=== PATIENT | female | born 1975 | race Asian ===

== ENCOUNTER 2019-08-18 08:50 | Emergency (ER) | payer OTHER, SELFPAY ==
[2019-08-18 09:09] VITALS: BP 163/100; PULSE 83; RESP 18; TEMP 36.7; O2SAT 96
--- NOTE | 2019-08-18 09:38 | ED.WOUNDLAC ---
HPI - Wound/Laceration General Chief Complaint: Wound/Laceration <Cristin Land MD - Last Filed: 08/18/19 18:15> Stated Complaint: Laceration to Right Arm <Cristin Land MD - Last Filed: 08/18/19 18:15> Time Seen by Provider: 08/18/19 09:32 <Cristin Land MD - Last Filed: 08/18/19 18:15> Source: patient <Cristin Land MD - Last Filed: 08/18/19 18:15> Mode of arrival: ambulatory <Cristin Land MD - Last Filed: 08/18/19 18:15> Limitations: no limitations <Cristin Land MD - Last Filed: 08/18/19 18:15> History of Present Illness HPI narrative: This patient is a 44 year old female right hand dominant who presents for evaluation of right arm laceration. Approximately 50 minutes ago patient states she was in a [place] when she hit her arm on metal component of a cabinet causing her to get a laceration. She took 400 mg ibuprofen before arrival to ER. She reports mild pain and bleeding. She also states some numbness around the laceration but she denies numbness, weakness or tingling distally. Her last tetanus has been greater than 5 years ago. <Cristin Land MD - Last Filed: 08/18/19 18:15> Onset (ago): minute(s) (40 ) <Cristin Land MD - Last Filed: 08/18/19 18:15> Related Data Home Medications: Home Medications Medication Instructions Recorded Confirmed No Home Medications 08/18/19 08/18/19 <Cristin Land MD - Last Filed: 08/18/19 18:15> Allergies/Adverse Reactions: Allergies Allergy/AdvReac Type Severity Reaction Status Date / Time No Known Allergies Allergy Unknown Verified 08/18/19 09:22 <Cristin Land MD - Last Filed: 08/18/19 18:15> Review of Systems Review of Systems: All systems reviewed & are unremarkable except as noted in HPI and below <Cristin Land MD - Last Filed: 08/18/19 18:15> PMFSH Past Medical History Medical History: Medical History (Updated 08/18/19 @ 11:11 by Britton Vu PA-C) Patient denies medical problems <Cristin Land MD - Last Filed: 08/18/19 18:15> Social History Social History: Social History Smoking status: Never smoker Alcohol intake: current Gender identity (if verbalized by the patient): Female <Cristin Land MD - Last Filed: 08/18/19 18:15> Exam Narrative: Exam Narrative: GENERAL: Well-appearing, well-nourished, and in no acute distress. HEAD: Normocephalic, atraumatic EYES: PERRLA and EOMI, conjunctiva clear without discharge THROAT:Mucous membranes moist, NECK: Supple, RESPIRATORY: No respiratory distress, Airway patent, HEART: Normal peripheral pulses. . EXTREMITIES: No edema, normal strength with full range of motion. NEURO: Alert and oriented x3. CN 2-12 grossly intact. No focal deficits. PSYCH: Normal mood and affect. <Cristin Land MD - Last Filed: 08/18/19 18:15> Skin: Other: right fore arm with flap laceration approximately 3 cm with subcutaneous tissue exposed <Cristin Land MD - Last Filed: 08/18/19 18:15> Course Vital Signs Vital signs: Vital Signs Temperature 98.0 F 08/18/19 09:09 Pulse Rate 83 08/18/19 09:09 Respiratory Rate 18 08/18/19 09:09 Blood Pressure 163/100 H 08/18/19 09:09 Pulse Oximetry 96 08/18/19 09:09 Temperature 98.0 F 08/18/19 09:09 Pulse Rate 78 08/18/19 11:18 Respiratory Rate 20 08/18/19 11:18 Blood Pressure 132/89 08/18/19 11:18 Pulse Oximetry 99 08/18/19 11:18 <Cristin Land MD - Last Filed: 08/18/19 18:15> Vital Signs Temperature 98.0 F 08/18/19 09:09 Pulse Rate 83 08/18/19 09:09 Respiratory Rate 18 08/18/19 09:09 Blood Pressure 163/100 H 08/18/19 09:09 Pulse Oximetry 96 08/18/19 09:09 Temperature 98.0 F 08/18/19 09:09 Pulse Rate 78 08/18/19 11:18 Respiratory Rate 20 08/18/19 11:18 Blood Pressure 132/89 08/18/19 11:
[2019-08-18] MEDS: TETANUS,DIPHTHERIA,AC PERTUSSIS ADULT (0.5 ML) BOOSTRIX IM (10:07)
[2019-08-18 11:18] VITALS: BP 132/89; PULSE 78; RESP 20; O2SAT 99
== END 2019-08-18 11:21 | disposition home or self-care (01) ==
PROVIDERS: Emergency Provider General Practice; PCP Family Medicine
DX: S51.811A Laceration without foreign body of right forearm, initial encounter (principal); Z23 Encounter for immunization; W26.8XXA Contact with other sharp object(s), not elsewhere classified, initial encounter
CPT/HCPCS: 12002; 90471; 90715; 99282

== ENCOUNTER 2022-03-26 10:31 | Outpatient (CLI) | payer OTHER, SELFPAY ==
[2022-03-26 19:54] LABS: Basophils Absolute Auto 0.1 K/mm3 (0.0-0.1); Basophils Percent Auto 0.9 % (0.2-1.2); Eosinophils Absolute Auto 0.1 K/mm3 (0-0.3); Eosinophils Percent Auto 0.9 % (0-4.4); Hematocrit 45.8 % (37.0-47.0); Hemoglobin 14.7 g/dL (12.0-15.0); Immature Granulocyte Absolute 0.02 K/mm3 (0.00-0.031); Immature Granulocyte Percent A 0.3 % (0-0.5); Lymphocytes Absolute Auto 2.36 K/mm3 (0.9-3.2); Lymphocytes Percent Auto 34.3 % (18.3-44.2); Mean Corpuscular HGB Conc 32.1 g/dl (32-36); Mean Corpuscular Hemoglobin 29.8 pg (26-34); Mean Corpuscular Volume 92.9 fl (80-100); Mean Platelet Volume 9.7 fl (7.4-10.4); Monocytes Absolute Auto 0.5 K/mm3 (0.1-0.6); Monocytes Percent Auto 7.6 % (2.6-8.5); Neutrophils Absolute Auto 3.9 K/mm3 (1.3-6.7); Platelet Count Result 307 k/mm3 (150-375); Red Blood Count 4.93 M/mm3 (4.2-5.4); Red Cell Distribution Width 13.2 % (11.5-14.5); White Blood Count 6.9 K/mm3 (4.5-10.0)
[2022-03-26 20:01] LABS: Alanine Aminotransferase 51 U/L (6-35); Albumin Level 4.7 g/dL (3.5-5.1); Alkaline Phosphatase 107 U/L (38-126); Anion Gap 5 mmol/L (8-16); Aspartate Amino Transferase 72 U/L (14-36); Bilirubin,Total 0.4 mg/dL (0.2-1.3); Blood Urea Nitrogen 15 mg/dL (7-17); Calcium 9.4 mg/dL (8.4-10.2); Carbon Dioxide 32 mmol/L (22-30); Chloride 101 mmol/L (98-107); Cholesterol 183 mg/dL (0-200); Estimated Glomerular Filt Rate > 60; Glucose 81 mg/dL (65-110); HDL Direct 45 mg/dL; Potassium 4.4 mmol/L (3.4-5.0); Sodium 138 mmol/L (137-145); Triglycerides 100 mg/dL (<150)
[2022-03-26 20:12] LABS: LDL Cholesterol Direct 97 mg/dL
[2022-03-26 20:37] LABS: Thyroid Stimulating Hormone Reflex 0.718 uIU/mL (0.465-4.68)
[2022-03-26 20:38] LABS: Microalbumin Urine Random < 6.0 mg/L (0-16.7)
[2022-03-26 20:39] LABS: MALB Creatinine Ratio < 8.8 mg/g (0-30)
[2022-03-26 22:53] LABS: Hemoglobin A1C 5.3 % (<5.7)
== END 2022-03-26 10:32 | disposition home or self-care (01) ==
LOC: ANHGOSHLAB 10:33
PROVIDERS: PCP Emergency Medicine; Visit Provider Emergency Medicine
DX: Z00.00 Encounter for general adult medical examination without abnormal findings (principal); R63.5 Abnormal weight gain; I10 Essential (primary) hypertension
CPT/HCPCS: 36415; 80053; 80061; 82043; 83036; 84443; 85025

== ENCOUNTER 2022-12-02 09:40 | Outpatient (CLI) | payer OTHER, SELFPAY ==
[2022-12-02 19:26] LABS: Alanine Aminotransferase 37 U/L (6-35); Albumin Level 4.6 g/dL (3.5-5.1); Alkaline Phosphatase 69 U/L (38-126); Aspartate Amino Transferase 37 U/L (14-36); Bilirubin,Total 0.6 mg/dL (0.2-1.3)
== END 2022-12-02 09:41 | disposition home or self-care (01) ==
LOC: ANHGOSHLAB 09:42
PROVIDERS: PCP Emergency Medicine; Visit Provider Emergency Medicine
DX: R79.89 Other specified abnormal findings of blood chemistry (principal)
CPT/HCPCS: 36415; 80076

== ENCOUNTER 2023-09-06 11:08 | Outpatient (CLI) | payer OTHER, SELFPAY ==
[2023-09-06 13:48] LABS: Alanine Aminotransferase 67 U/L (6-35); Alkaline Phosphatase 82 U/L (38-126); Anion Gap 7 mmol/L (4-12); Aspartate Amino Transferase 63 U/L (14-36); Bilirubin,Total 0.6 mg/dL (0.2-1.3); Blood Urea Nitrogen 18 mg/dL (7-17); Calcium 9.9 mg/dL (8.4-10.2); Carbon Dioxide 32 mmol/L (22-30); Chloride 102 mmol/L (98-107); Cholesterol 228 mg/dL (0-200); Estimated Glomerular Filt Rate > 60; Glucose 100 mg/dL (65-110); HDL Direct 58 mg/dL; Potassium 4.5 mmol/L (3.4-5.0); Sodium 141 mmol/L (137-145); Triglycerides 152 mg/dL (<150)
[2023-09-06 13:59] LABS: LDL Cholesterol Direct 128 mg/dL
== END 2023-09-06 11:09 | disposition home or self-care (01) ==
LOC: ANHGOSHLAB 11:09
PROVIDERS: PCP Emergency Medicine; Visit Provider Emergency Medicine
DX: R79.89 Other specified abnormal findings of blood chemistry (principal); I10 Essential (primary) hypertension
CPT/HCPCS: 36415; 80053; 80061

== ENCOUNTER 2023-09-14 09:11 | Outpatient (CLI) | payer OTHER, SELFPAY ==
--- NOTE | ~2023-09-14 | US_ITS ---
Limited Abdominal Sonogram: Real-time sonographic imaging of the right upper quadrant was performed. Clinical History: Abnormal blood chemistry findings Findings: The liver appears echogenic, with no evidence of mass lesion or bile duct dilatation. Main portal vein demonstrates normal direction of flow. The gallbladder is well distended, and appears no rmal with no evidence of gallstone or wall thickening. The common bile duct measures 9 mm. The visua lized pancreas, aorta, and IVC are unremarkable. Impression: Diffuse fatty infiltration of liver. Dilated common bile duct. Consider MRCP for further evaluation as indicated. Reviewed, dictated and finalized at location . Impression: Diffuse fatty infiltration of liver. Dilated common bile duct. Consider MRCP for further evaluation as indicated.
== END 2023-09-14 09:12 ==
PROVIDERS: PCP Emergency Medicine; Visit Provider Emergency Medicine
DX: R79.89 Other specified abnormal findings of blood chemistry (principal); K76.0 Fatty (change of) liver, not elsewhere classified
CPT/HCPCS: 76705

== ENCOUNTER 2023-09-20 07:52 | Outpatient (CLI) | payer OTHER, SELFPAY ==
--- NOTE | ~2023-09-20 | MM_ITS ---
EXAMINATION: MM screening sofia BI w bill HISTORY: Screening TECHNIQUE: Craniocaudal and mediolateral oblique 3-D tomosynthesis images were obtained and synthetic 2-D images were generated. CAD analysis was submitted and interpreted. COMPARISON: No prior mammogram is available for comparison at this institution. BREAST PARENCHYMAL COMPOSITION: Not dense: There are scattered areas of fibroglandular density. FINDINGS: There is no evidence for malignancy in the right breast. There is a left subareolar mass. T here is possible left subareolar architectural distortion. IMPRESSION: 1. Possible architectural distortion with associated mass in the subareolar location of the left [address]. 2. Additional mammographic views and possible breast ultrasound are recommended. BI-RADS Category 0: Incomplete: Needs additional imaging evaluation. Reviewed, dictated and finalized at location B. IMPRESSION: 1. Possible architectural distortion with associated mass in the subareolar loc ation of the left breast. 2. Additional mammographic views and possible breast ultrasound are recommended . BI-RADS Category 0: Incomplete: Needs additional imaging evaluation.
== END 2023-09-20 07:53 | disposition home or self-care (01) ==
LOC: CHSIMG 07:54
PROVIDERS: PCP Emergency Medicine; Visit Provider Emergency Medicine
DX: Z12.31 Encounter for screening mammogram for malignant neoplasm of breast (principal)
CPT/HCPCS: 77063; 77067

== ENCOUNTER 2023-09-23 08:30 | Outpatient (CLI) | payer OTHER, SELFPAY ==
--- NOTE | ~2023-09-23 | MMUS_ITS ---
EXAMINATION: MM diagnostic sofia LT w bill, US breast LT limited HISTORY: Follow-up possible architectural distortion with mass in the left breast TECHNIQUE: Additional 3-D tomosynthesis images of the left breast were performed and synthetic 2-D im ages were generated. CAD analysis was submitted and interpreted. High resolution Limited left breast ultrasound was performed. COMPARISON: 09/20/2023 BREAST PARENCHYMAL COMPOSITION: Not dense: There are scattered areas of fibroglandular density. FINDINGS: MAMMOGRAPHIC FINDINGS: There is a small persistent mass in the subareolar location of the left breast on spot cc view. This is not definitely visualized on spot MLO or mediolateral views. ULTRASOUND: Limited left breast ultrasound: In the subareolar location of the left breast there is a 6 x 3 x 2 mm cyst corresponding to the mass seen on mammography. No suspicious masses to suggest malignancy. IMPRESSION: 1. No evidence for malignancy in the left breast. Benign finding. 2. Routine yearly screening mammogram and regular clinical breast examination are recommended. BI-RADS Category 2: Benign finding(s). Reviewed, dictated and finalized at location B. IMPRESSION: 1. No evidence for malignancy in the left breast. Benign finding. 2. Routine yearly screening mammogram and regular clinical breast examination a re recommended. BI-RADS Category 2: Benign finding(s).
== END 2023-09-23 08:31 | disposition home or self-care (01) ==
LOC: CHSIMG 08:31
PROVIDERS: PCP Emergency Medicine; Visit Provider Nurse Practitioner Family
DX: R92.8 Other abnormal and inconclusive findings on diagnostic imaging of breast (principal)
CPT/HCPCS: 76642; 77061; 77065; G0279

== ENCOUNTER 2024-04-03 08:27 | Outpatient (CLI) | payer OTHER, SELFPAY ==
--- NOTE | ~2024-04-03 | US_ITS ---
Limited Abdominal Sonogram: Real-time sonographic imaging of the right upper quadrant was performed. Clinical History: Abnormal LFTs Findings: The liver appears normal with no evidence of mass lesion or bile duct dilatation. Main por greyson vein demonstrates normal direction of flow. The gallbladder is well distended, and appears normal with no evidence of gallstone or wall thickening. The common bile duct measures 8 mm. The visualize d pancreas, aorta, and IVC are unremarkable. Impression: Mildly dilated common bile duct, of uncertain etiology. Reviewed, dictated and finalized at location M. O CONSULTANT Impression: Mildly dilated common bile duct, of uncertain etiology.
== END 2024-04-03 08:28 | disposition home or self-care (01) ==
LOC: GOSHIMG 08:27
PROVIDERS: PCP Family Medicine; Visit Provider Family Medicine
DX: R79.89 Other specified abnormal findings of blood chemistry (principal); K83.8 Other specified diseases of biliary tract; K76.0 Fatty (change of) liver, not elsewhere classified
CPT/HCPCS: 76705

== ENCOUNTER 2024-04-03 08:42 | Outpatient (CLI) | payer OTHER, SELFPAY ==
--- OUTSIDE RECORDS SUMMARY | 2024-04-03 08:56 | XMS_ITS | Clinical Summary ---
Author Organization [facility] Address [address] [address] Care Team Providers Care Construction Safety Consultant Name Role Phone Unavailable Primary Care Provider Unavailabl e Source Comments [facility],non-owned Affiliates and Associated Physician Practices is amultiple site organization consisting of ambulatory clinics and hospital sitesin [place], [place], [place] and [place]. This disclosure is being madepursuant to the Care Everywhere program and may not contain all information available regarding this patient. Last updated 17.[facility] Social History Tobacco Use Types Packs/Day Years Used Date Smoking Tobacco: Never Assessed Sex and Gender Information Value Date Recorded Sex Assigned at Not on file Gender Identity Not on file Sexual Orientation Not on file Plan of Treatment Upcoming Encounters Date Type Department Care Team (Late st Contact Info) Description 04/23/2024 2:10 PM DIRECTOR OF ACCREDITATION Office Visit [facility] [id number] [place] [id number] [place] [address] [address] Health Maintenance Due Date Last Done Comments COLOGUARD (AGES 45-75) - COL ON CA SCREENING 1973 COLON MONITORING 1973 COLONOSCOPY - COLON CA SCREENING 1973 CT COLONOGRAPHY - COLON CA SCREENING 1973 Colorectal Cancer Screening 1973 FIT - COLON CA SCREENING 1973 FLEX SIG - COLON CA SCREENING 1973 LIPID TESTING 1973 MAMMOGRAM 1973 PAP SMEAR 1973 HIV SCREENING 02/05/1988 HEPATITIS C SCREENING 01/31/1991 DTAP/TDAP/TD VACCINES (1 - Tdap) 02/05/1992 HEPATITIS B VACCINE (1 of 3 - 19+ 3-dose series) 02/05/1992 PNEUMOCOCCAL VACCINE 50+ (1 of 1 - PCV) 2023 ZOSTER VACCINE (1 of 2) 2023 COVID-19 VACCINE (1 - 2023-2 5 season) 2023 INFLUENZA VACCINE (#1) 2023 DEPRESSION SCREENING 03/07/2024 HIB VACCINE Aged Out No longer eligi ble based on patient's age to complete this topic HPV VACCINE Aged Out No longer eligi ble based on patient's age to complete this topic MENINGOCOCCAL (Group B) VACCINE Aged Out No longer eligible based on patient's age to complete this topic MENINGOCOCCAL VACCINE Aged Out No rafael chika eligible based on patient's age to complete this topic PNEUMOCOCCAL VACCINE Aged Out No long er eligible based on patient's age to complete this topic
--- OUTSIDE RECORDS SUMMARY | 2024-04-03 08:56 | XMS_ITS | Data Portability ---
Author Organization [facility] [place] Address [address] [place] [address] Care Team Providers Care Russian Language Instructor Name Role Phone DMITRYJAVI AIKEN Primary Care Provider Assessment Encounter Date Assessment Date Assessment LastModified by Organization Details LastModified Time 09/25/2020 09/25/2020 Annual gynecological exam performed. Patient will come back in a year unless there are new symptoms. Not available 09/25/2020 11:00:38 Plan of Treatment Reminders Order Date Submit Date Provider Last Modified By Organization Details Last Modified Time Details Appointments None record ed. Lab None record ed. Referral None record ed. Procedures None record ed. Surgeries None record ed. Imaging None record ed. Medication Orders None record ed. Patient TargetsNo targets recorded. Patient InstructionsNo instructions recorded. Reason for Referral None Reported. Problems Name Problem SNOMED Code Status Onset Date Resolution Date Notes Provider Name and Address Organization Details Recorded Time SNOMED CT Concept Completed 201809/25/2020 Encntr for general adult medical exam w/o abnormal findings; Recorded Elsewhere : No Locati on: [facility] So urce: EHR Chron ic: N Practic e ID: [id number] Bill able Time: 10:45:00 AM Apryl morales [facility] 11:03:12 Screenin g for malignan t neoplasm of cervix Completed 201509/25/2020 Screening for malignant neoplasms of the cervix;Re corded Elsewhere : No Locati on: [facility] So urce: EHR Chron ic: N Practic e ID: [id number] Bill able Time: 01:30:00 PM Apryl morales [facility] 1 11:03:[address] Concept Completed 201809/25/2020 Encntr for specialty finishing utility person exam (general) (routine) w/o abn findings; Recorded Elsewhere : No Locati on: [facility] So urce: EHR Chron ic: N Practic e ID: [id number] Bill able Time: 10:45:00 AM Apryl Alves [facility] 1 11:03:14 Body mass index 25-29 - overweig ht [id number] Completed 201509/25/2020 Body mass index (BMI) 26.0-26.9 , adult;Rec orded Elsewhere : No Locati on: [facility] So urce: EHR Chron ic: N Practic e ID: [id number] Bill able Time: 01:30:00 PM Apryl Alves [facility] 11:03:06 Elevated blood-pr essure reading without diagnosi s of hyperten shruthi [id number] Completed 201809/25/2020 Elevated blood-pre ssure reading without diagnosis of HTN;Recor ded Elsewhere : No Locati on: [facility] So urce: EHR Chron ic: N Practic e ID: [id number] Bill able Time: 10:45:00 AM Apryl Alves [facility] 11:03:08 Screenin g for malignan t neoplasm of rectum Completed 201509/25/2020 Encounter for screening for malignant neoplasm of rectum;Re corded Elsewhere : No Locati on: [facility] So urce: EHR Chron ic: N Practic e ID: [id number] Bill able Time: 01:30:00 PM Apryl Sanford [facility] 11:03:11 Problem Notes None recorded. Procedures Surgical History Date Name Laterality Status Provider Name and Address Organization Details Recorded Time 03/07/18 reconstruction of anterior cruciate ligament of knee joint completed Apryl [facility] 09/25/2020 11:11:03 Imaging Results None recorded. Procedure Notes None recorded. Medical Equipment None Reported. Allergies No known drug allergies Medications Name Sig Start Date Stop Date Status Note LastModified by Organization Details LastModified Time Zyrtec 10 mg tablet take 1 tablet by oral route every day active Prescribed Elsewhere: Yes Locatio n: [facility] Ramo fy By: [email or web address] En counter DateTime: 05/15/2018 10:45:00 AM Not Available Not Available Not Available Vitals Date Recorded Body height Body mass index (BMI) Body weight Provider Name and Address Organization Details Last Updated DateTime 09/25/2020 160.02 cm 29.8 kg/m2 74972.52 g Apryl Alves [facility] 09/25/2020 11:02:52 Date Recorded Systolic blood pressure Diastolic blood pressure Provider Name and Address Organization Details Last Updated DateTime 09/25/2020 126 mm[Hg] 80 mm[Hg] Lynsey Wise, [facility]- [address], [place], [address], [facility] 09/25/2020 11:30:41 Social History Question Answer Notes LastModified by Organizat ion Details LastModified Time Tobacco Smoking Status Never Smoker Apryl Alves [facility], [facility] 09/25/2020 11:10:45 What Is Your Level Of Alcohol Consumption? Occasional Information not available 09/25/2020 Are You Blind Or Do You Have Difficulty Seeing? No Information not available 09/25/2020 What Is Your Level Of Caffeine Consumption? Occasional Information not available 09/25/2020 Are You Deaf Or Do You Have Serious Difficulty Hearing? No Information not available 09/25/2020 What Type Of Diet Are You Following? REGULAR Information not available 09/25/2020 Do You Use Your Seat Belt Or Car Seat Routinely? Yes Information not available 09/25/2020 Do You Have Smoke And Carbon Monoxide Detectors In Your Home? Yes Information not available 09/25/2020 Do You Feel Stressed (tense, Restless, Nervous, Or Anxious, Or Unable To Sleep At Night)? [id number] Information not available 09/25/2020 Do You Use Any Illicit Or Recreational Drugs? No Information not available 09/25/2020 Do You Use Sunscreen Routinely? Yes Information not available 09/25/2020 Sex: Unknown Functional Status Question Answer Note LastModified by Organizat ion Details LastModified Time Are you able to walk? YESWOREST Information not available 09/25/2020 What is your exercise level? Occasional Information not available 09/25/2020 Mental Status None recorded. Family History Relationship Description Onset Age of this Age Resolved Age Notes LastModified by Organization Details LastModified Time Maternal Grandmother Diabetes mellitus Not available 2020 11:10:21 Medical History Condition Response Allergies (Food, seasonal, environmental ) N Other Y Breast Cancer N Drug/Latex Allergies/Reactions N Blood Transfusion N Dermatologic Disorders N Lung Disease N Defects or Inherited Disease N Breast Problem N Gestational Diabetes N Hematologic disorders N Anesthesia Complications N History of STI N Deep Vein Thrombosis N Polycystic ovary syndrome N Anxiety Disorder N Autoimmune disease N Arthritis N Infertility N Polyps N Acid Reflux (GERD) N History of abnormal pap N Cancer N Stroke N Varicosities N Neurologic/Epilepsy N Endometriosis N High Cholesterol N Headaches N Fibromyalgia N Kidney Disease N Heart Problems N Kidney or Bladder Problems N Thyroid Problems N GI Problems N Eating Disorder N Anemia N Art (IVF or FET) N Psychiatric Illness N Ovarian Cancer N Diabetes N Pulmonary (TB, Asthma) N Hepatitis/Liver Disease N No Past Medical History N Eczema N Urinary Tract Infection N Abuse/Domestic Violence N Asthma N Trauma/Violence N Depression/ depression N Heart Disease N Pre-Eclampsia N Hypertension N Osteoporosis N Thrombophilias N Gynecological History Statement/Question Response Abnormal Pap N Flow Moderate Date of Last Mammogram Date of LMP 09/04/2020 Was last menstrual period normal N STIs/STDs N Duration of Flow (days) 5 13 Current Control Method None Are cycles usually normal N Sexually Active? Y Menses Monthly N Date of Last Pap Smear Sexual Problems? N LMP Approximate Obstetrics History GPAL:G 2 P 0 0 0 2 Type Value Living 2 Total 2 Past Encounters Encounter ID Performer Location Encounter Start Date Encounter Closed Date Diagnosis/Indication Diagnosis SNOMED-CT Code Diagnosis ICD10 Code Diagnosis Note [id number] Lynsey Wise [facility] [address] [address] 09/25/2020 10:42:10 09/25/2020 11:36:06 Gynecologic examination 63152221 Z01.419 Suggested Calcium with Vitamin D 1200-1500m g daily. Patient advised to get an annual flu shot in the fall and she could obtain at [facility] or [facility] care clinic. Also to obtain TDap vaccinatio n if you have not had one in the last 10 years. Recommend yearly mammograms . Encouraged monthly self breast exams. Encourage safe sexual practices, to use condoms and limit partners if not already in a monogamous relationsh ip. Engage in daily exercise of low impact aerobic exercise 45-60 minutes 4-5 times weekly. Avoid tobacco and illicit drugs as well as using moderation with alcohol intake less than 1-2 8 oz beverages daily. This lifestyle behavior pattern will lead to less health conditions and longer life span. If BMI greater than 25 weight watchers or dietary consult advised. All questions have been answered. Patient appears to understand informatio n, but if you have any questions please call or respond to this email. Pap/hpv hx is wnlLast pap/hpv 2018 wnlNext pap/hpv due 2023 unless otherwise indicated per asccpSTD [facility] ipal of schoolNo issues or concernsRe commended reading: The menopause manifestoC olonoscopy rec's reviewed-w ill discuss with PCPmammo ordered Health Concerns Section Related Observation LastModified by Organization Detai ls LastModified Time None Recorded Concern Status LastModified by Organization Details LastModified Time None Recorded Advance Directives Directive None Recorded Payers Encounter Date Sequence Insurance Name Policy Number Policy Schwartz Covered Member ID Schwartz Member ID Guarantor Name 09/25/2020 1 [facility] [id number] Morgan Lewis [id number] Marika Lewis Notes Date Note Type Note Provider Name and Address Organization Details Recorded Time 09/25/2020 text/html Annual GYNReport ed bypatient.History: no gynecologic complaints Menstrual cycle:Normal menses Urinary symptoms:No hematuria; No incontinence Vulva:No genital lesion Vagina:Normal vaginal discharge Breast:No breast pain; No breast lump; No nipple discharge Current Contraception:Sati sfied with current contraception; Monogamous relationship; Partner had vasectomy Sexual complaints:No sexual complaints; No pain during intercourse; Normal libido Menopausal Symptoms:No menopausal symptoms; Normal vaginal lubrication Psychological symptoms:No depression; No anxiety; No PMDD Preventive measures:Encourage self breast examination; Encourage regular exercise; Encourage no tobacco use; Encourage regular mammograms starting age 40; Followed with Q3 year pap smear and high risk HPV typing; Needs to schedule mammogram; Needs to schedule colonoscopy Lynsey Wise, [facility]- [address], [place], [address], [facility] 09/25/2020 11:31:33 OBGyn Episode Ob Episode Information Episode Created Date Number of Fetuses Patient Bloodtype Patient rh Status Prepregnancy Weight lbs Domestic Partner Domestic Partner Phone Father Name Fountain Roller Assembler Status 09/26/19 21 1 CLOSED Fetus Data First Name Last Name Admitted to NICU Weight (g) Sex Living Outcome Pediatric Complications Fetus ID Race Codes Race Delivery Type 2976.47 0704 M Full Term [id number] Vaginal Delivery Alon Calculation Initial Alon Date Initial Exam Date Initial Exam Provider Initial Ultrasound Date Last Menstrual Period Date Ultra Sound Weeks Gestation 0 Eighteen To Twenty Week Alon Update Ultra Sound Date Fundal Height At Umbil Quickening Date Ultra Sound Latest Weeks Gestation Final Alon Confirmed By Final Alon Confirmed Date Final Alon Date Ultra Sound Latest Days Gestation 0 0 Menstrual History Last Menstrual Date Menses Monthly On Bcp Conception Prior Menses Frequency Hcg Plus Date Menarche Onset Age Delivery Information Delivery Date Delivery Type Labor Anesthesia Weeks Gestation Incision Type Labor Labor Length Hrs Delivered By Post Complications Tubal Sterilization Discharge Date Comments 5 39 Discharge Information Feeding Method Contraceptive Method Maternal HG B and HCT Levels Ob Episode Information Episode Created Date Number of Fetuses Patient Bloodtype Patient rh Status Prepregnancy Weight lbs Domestic Partner Domestic Partner Phone Father Name Fountain Roller Assembler Status 09/26/19 21 1 CLOSED Fetus Data First Name Last Name Admitted to NICU Weight (g) Sex Living Outcome Pediatric Complications Fetus ID Race Codes Race Delivery Type 3089.86 8704 M Full Term [id number] Vaginal Delivery Alon Calculation Initial Alon Date Initial Exam Date Initial Exam Provider Initial Ultrasound Date Last Menstrual Period Date Ultra Sound Weeks Gestation 0 Eighteen To Twenty Week Alon Update Ultra Sound Date Fundal Height At Umbil Quickening Date Ultra Sound Latest Weeks Gestation Final Alon Confirmed By Final Alon Confirmed Date Final Alon Date Ultra Sound Latest Days Gestation 0 0 Menstrual History Last Menstrual Date Menses Monthly On Bcp Conception Prior Menses Frequency Hcg Plus Date Menarche Onset Age Delivery Information Delivery Date Delivery Type Labor Anesthesia Weeks Gestation Incision Type Labor Labor Length Hrs Delivered By Post Complications Tubal Sterilization Discharge Date Comments 3 40 Discharge Information Feeding Method Contraceptive Method Maternal HG B and HCT Levels
--- OUTSIDE RECORDS SUMMARY | 2024-04-03 08:57 | XMS_ITS | Clinical Summary ---
Author Organization [facility] 8 [facility] Address [address] [place] [address] Care Team Providers Care Quality Assurance Calibrator Name Role Phone Chalo Toth MD Primary Care Provider [phone] Allergies No known active allergies Medications ibuprofen (ADVIL,MOTRIN) 200 mg tab/cap Take 200 mg by mouth every 6 (six) hours as needed for pain. Active betamethasone, augmented, (DIPROLENE) 0.05 % ointment Apply topically 2 (two) times a day 50 g 5 3 Active ustekinumab (STELARA) injection Inject 0.5 mL (45 mg total) under the skin once for 1 dose Repeat 4 weeks later (loading dose is 2 injections, 4 weeks apart) 0.5 mL 1 3 Active ustekinumab (STELARA) injection Inject 0.5 mL (45 mg total) under the skin every 3 (three) months 0.5 mL 3 3 Active Active Problems No known active problems Surgical History Surgery Date Site/Laterality Comments KNEE SURGERY Social History Tobacco Use Types Packs/Day Years Used Date Smoking Tobacco: Never Smokeless Tobacco: Never Personal Safety Answer Date Recorded Getting School Help Needed Not on file 05/20 Comments Unknown Sex and Gender Information Value Date Recorded Sex Assigned at Not on file Legal Sex Female 6:48 PM SURGICAL DEVICE SALES REPRESENTATIVE Gender Identity Not on file Sexual Orientation Not on file Obstetrics History Last Filed Vital Signs Vital Sign Reading Time Taken Comments Blood Pressure 146/77 12/03/2016 11:18 AM CDT Pulse 67 12/03/2016 11:18 AM CDT Temperature - - Respiratory Rate - - Oxygen Saturation - - Inhaled Oxygen Concentration - - Weight 67.1 kg (148 lb) 12/03/2016 11:18 AM CDT Height 162.6 cm (5' 4 ) 12/03/2016 11:18 AM CDT Body Mass Index 25.4 12/03/2016 11:18 AM CDT Plan of Treatment Health Maintenance Due Date Last Done Comments Breast Cancer Screening-Mammogram 1973 Cervical Cancer Screening 1973 Colon Cancer Screening-Colonoscopy 1973 Depression Screening 1973 Hepatitis B Screening 1991 Regular Well Visit/Exam 18-64 1991 Zoster Vaccine (1 of 2) 2023 Covid-19 Vaccine (2023-2 5 season) 2023 06/22/2020, 06/01/2020 Influenza Vaccine (#1) 2023 0, 12/17/2018 DTaP/Tdap/Td Vaccine (2 - Td or Tdap) 08/17/2029 08/18/2019 Hepatitis C Screening Completed 07/09/2022 Pneumococcal vaccine <65 Aged Out No longer eligible based on patient's age to complete this topic Procedures Procedure Name Priority Date/Time Associated Diagnosis Comments HEPATITIS C ANTIBODY Routine 07/09/2022 11:42 AM CDT High risk medication use from Last 3 Months or Most Recently Relevant to Health Maintenance Results * Hepatitis C antibody (07/09/2022 11:42 AM CDT) Hep C Ab Nonreactive Nonreactive ENEDELIA PERALTA Comment:Antibodies to HCV no t detected. Does NOT exclude the possibility of recent exposure to HCV. Current interpretive data was last revised on 21 Blood 07/09/2022 11:4 2 AM CDT 07/09/2022 12:13 PM CDT us Aida Pedraza MD LAB MICROBIOLOGY - GENERAL BRENDA MCLEAN Final Result [facility] [place] [address] from Last 3 Months or Most Recently Relevant to Health Maintenance Insurance [facility] H[facility]/PPO Address: [place] [address] [facility]/PPO Address: [place] [address] [facility]: [place] [address] Care Teams Quality Assurance Calibrator Relationship Specialty Start Date End Date Chalo Toth MD [address] [address] PCP - General Family Medicine 12/03/16
--- OUTSIDE RECORDS SUMMARY | 2024-04-03 08:57 | XMS_ITS | Clinical Summary ---
Author Organization [facility] Address [address] [place] [address] Care Team Providers Care Loader [employer]iconductor Dies Name Role Phone Ene Flannery MD Primary Care Provider [phone] Medications No known medications Active Problems Problem Noted Date Diagnosed Date Primary osteoarthritis of left knee 04/21/2020 Quadriceps weakness 04/21/2020 Family History Medical History Relation Name Comments Diabetes Father No Known Problems Mother Relation Name Status Comments Father Mother Social History Tobacco Use Types Packs/Day Years Used Date Smoking Tobacco: Never Smokeless Tobacco: Never Alcohol Use Standard Drinks/Week Comments Yes 2 (1 standard drink = 0.6 oz pur e alcohol) Financial Resource Strain Answer Date R ecorded How hard is it for you to pa y for the very basics like food, housing, medical care, and heating? Not hard at all 04/21/2020 Food Insecurity Answer Date Recorded Within the past 12 months, y ou worried that your food would run out before you got the money to buy more. Never true 04/21/19 21 Within the past 12 months, t he food you bought just didn't last and you didn't have money to get more. Never true 04/21/2020 Transportation Needs Answer Date Record ed In the past 12 months, has l ack of transportation kept you from medical appointments or from getting medications? No 04/07 In the past 12 months, has l ack of transportation kept you from meetings, work, or from getting things needed for daily living? No 04/21/2020 Comments Unknown Sex and Gender Information Value Date Recorded Sex Assigned at Not on file Legal Sex Female 9:34 AM GERIATRICS PHYSICIAN Gender Identity Not on file Sexual Orientation Not on file Last Filed Vital Signs Vital Sign Reading Time Taken Comments Blood Pressure 120/80 04/21/2020 9:22 AM GERIATRICS PHYSICIAN Pulse - - Temperature - - Respiratory Rate - - Oxygen Saturation - - Inhaled Oxygen Concentration - - Weight 74.8 kg (165 lb) 04/21/2020 9:22 AM GERIATRICS PHYSICIAN Height 162.6 cm (5' 4 ) 04/21/2020 9:22 AM GERIATRICS PHYSICIAN Body Mass Index 28.32 04/21/2020 9:22 AM GERIATRICS PHYSICIAN Plan of Treatment Health Maintenance Due Date Last Done Comments DTAP/TDAP/TD VACCINES (1 - Tdap) 02/05/1992 HEPATITIS B VACCINES (1 of 3 - 19+ 3-dose series) 02/05/1992 CERVICAL CANCER SCREENING 2003 BREAST CANCER SCREENING 2013 COLORECTAL SCREENING 2018 Colorectal Cancer Screening 2018 FIT-DNA Q 3 years 2018 FIT/FOBT Q 1 year 2018 Flex Sig/CT Colonography Q 5 years 2018 ZOSTER VACCINE (1 of 2) 2023 INFLUENZA VACCINE (#1) 2023 0, 01/08/2020 PNEUMOCOCCAL VACCINE 0-64 YEARS Aged Out No longer eligible b ased on patient's age to complete this topic Insurance Care Teams Loader [employer]iconductor Dies Relationship Specialty Start Date End Date Een Flannery MD PCP - General Family Practice 04/01/20
--- OUTSIDE RECORDS SUMMARY | 2024-04-03 08:57 | XMS_ITS | Patient Health Summary ---
Author Organization [facility] Address [address] [place] [address] Care Team Providers Care Gutter Installer Name Role Phone Unavailable Primary Care Provider Unavailabl e Note from [facility],non-owned Affiliates and Associated Physician Practices is amultiple site organization consisting of ambulatory clinics and hospital sitesin [place]. This disclosure is being madepursuant to the Care Everywhere program and may not contain all information available regarding this patient. Last updated 17.[facility] Social History Tobacco Use Types Packs/Day Years Used Date Smoking Tobacco: Never Assessed Sex and Gender Information Value Date Recorded Sex Assigned at Not on file Gender Identity Not on file Sexual Orientation Not on file
--- OUTSIDE RECORDS SUMMARY | 2024-04-03 08:57 | XMS_ITS | Referral Summary ---
Author Organization [facility] 8 [facility] Address [address] [place] [address] Care Team Providers Care Edge Cutter Name Role Phone Chalo Toth MD Primary Care Provider [phone] Allergies No known active allergies Medications ibuprofen [...] Active Active Problems No known active problems Social History Tobacco Use Types Packs/Day Years Used Date Smoking Tobacco: Never Smokeless Tobacco: Never Personal Safety Answer Date Recorded Getting School Help Needed Not on file 05/20 Comments Unknown Sex and Gender Information Value Date Recorded Sex Assigned at Not on file 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 Department [place] [address] from Last 3 Months or Most Recently Relevant to Health Maintenance Insurance [facility]/PPO Address: [address] [address] [place] [address] [facility] Address: [address] [place] [address] [facility]/PPO Address: [address] [address] [place] [address] Care Teams Edge Cutter Relationship Specialty Start Date End Date Chalo Toth MD [address] [place] [address] PCP - General Family Medicine 12/03/16
--- OUTSIDE RECORDS SUMMARY | 2024-04-03 08:57 | XMS_ITS | Referral Summary ---
Author Organization [facility] Address [address] [facility] [place] [address] Care Team Providers Care Wax Engraver Name Role Phone Unavailable Primary Care Provider Unavailabl e Source Comments [facility],non-owned Affiliates and Associated Physician Practices is amultiple site organization consisting of ambulatory clinics and hospital sitesin [place], [place], [place] and [place]. This disclosure is being madepursuant to the Care Everywhere program and may not contain all information available regarding this patient. Last updated 17.[facility] Social History Tobacco Use Types Packs/Day Years Used Date Smoking Tobacco: Never Assessed Sex and Gender Information Value Date Recorded Sex Assigned at Not on file Gender Identity Not on file Sexual Orientation Not on file Plan of Treatment Upcoming Encounters Date Type Department Care Team (Late st Contact Info) Description 04/23/2024 2:10 PM ARCHITECTURE DRAFTER Office Visit [facility] [address] [place] [id number] [place] [id number] [address]
[2024-04-03 13:35] LABS: Basophils Percent Auto 0.7 % (0.2-1.2); Eosinophils Absolute Auto 0.1 K/mm3 (0-0.3); Eosinophils Percent Auto 1.1 % (0-4.4); Hematocrit 45.8 % (37.0-47.0); Hemoglobin 14.7 g/dL (12.0-15.0); Immature Granulocyte Absolute 0.01 K/mm3 (0.00-0.031); Immature Granulocyte Percent A 0.2 % (0-0.5); Lymphocytes Absolute Auto 2.14 K/mm3 (0.9-3.2); Lymphocytes Percent Auto 48.2 % (18.3-44.2); Mean Corpuscular HGB Conc 32.1 g/dl (32-36); Mean Corpuscular Hemoglobin 29.7 pg (26-34); Mean Corpuscular Volume 92.5 fl (80-100); Mean Platelet Volume 10.1 fl (7.4-10.4); Monocytes Absolute Auto 0.3 K/mm3 (0.1-0.6); Neutrophils Absolute Auto 1.9 K/mm3 (1.3-6.7); Neutrophils Percent Auto 42.8 % (45.5-73.1); Platelet Count Result 249 k/mm3 (150-375); Red Blood Count 4.95 M/mm3 (4.2-5.4); Red Cell Distribution Width 13.2 % (11.5-14.5); White Blood Count 4.4 K/mm3 (4.5-10.0)
[2024-04-03 15:08] LABS: Hepatitis B Surface Antigen Negative (Negative)
[2024-04-03 15:12] LABS: Alanine Aminotransferase 31 U/L (6-35); Albumin Level 4.3 g/dL (3.5-5.1); Alkaline Phosphatase 83 U/L (38-126); Anion Gap 10 mmol/L (4-12); Aspartate Amino Transferase 65 U/L (14-36); Bilirubin,Total 0.6 mg/dL (0.2-1.3); Blood Urea Nitrogen 16 mg/dL (7-17); Calcium 9.3 mg/dL (8.4-10.2); Carbon Dioxide 29 mmol/L (22-30); Chloride 101 mmol/L (98-107); Cholesterol 177 mg/dL (0-200); Estimated Glomerular Filt Rate > 60; Glucose 84 mg/dL (65-110); HDL Direct 54 mg/dL; Potassium 3.9 mmol/L (3.4-5.0); Sodium 140 mmol/L (137-145); Triglycerides 79 mg/dL (<150)
[2024-04-03 15:14] LABS: HAV RESULT Negative (Negative); Hepatitis B Core IgM Result Negative (Negative)
[2024-04-03 15:24] LABS: LDL Cholesterol Direct 81 mg/dL
[2024-04-03 15:26] LABS: Hepatitis C Virus Antibody Negative (Negative)
[2024-04-03 15:41] LABS: Thyroid Stimulating Hormone 0.494 uIU/mL (0.465-4.680)
[2024-04-03 18:25] LABS: Hemoglobin A1C 5.6 % (<5.7)
== END 2024-04-03 08:43 | disposition home or self-care (01) ==
LOC: ANHGOSHLAB 08:43
PROVIDERS: PCP Family Medicine; Visit Provider Family Medicine
DX: K76.0 Fatty (change of) liver, not elsewhere classified (principal)
CPT/HCPCS: 36415; 80053; 80061; 80074; 83036; 84443; 85025

== ENCOUNTER 2024-04-06 16:27 | Emergency (ER) | payer OTHER, SELFPAY ==
--- NOTE | 2024-04-06 16:31 | ED_ITS ---
HPI - URI/Sore Throat General Chief Complaint: Upper Respiratory Infection Stated Complaint: R EARACHE/COUGH Time Seen by Provider: 04/06/24 16:30 Source: patient Mode of arrival: ambulatory Limitations: no limitations History of Present Illness HPI Narrative: Patient is a 49-year-old female who presents with sore throat, right earache, head congestion, cough that started today. Denies any fever, chills, nausea vomiting, diarrhea. Has not take anything for symptoms. Related Data Allergies Allergy/AdvReac Type Severity Reaction Status Date / Time No Known Allergies Allergy Unknown Verified 04/06/24 16:37 Review of Systems Review of Systems: All systems reviewed & are unremarkable except as noted in HPI and below Constitutional: Constitutional: Denies body ache(s), Denies chills, Denies fatigue, Denies fever(s), Denies headache(s), Denies malaise and Denies weakness Eyes: Eyes: Denies blurry vision, Denies itchy eyes and Denies loss of vision ENT: Reports otalgia, Denies headache(s), Reports nasal congestion, Denies sinus pain and Reports sore throat Cardiovascular: Cardiovascular: Denies chest pain, Denies irregular heart rhythm and Denies dyspnea Respiratory: Respiratory: Reports cough and Denies dyspnea Gastrointestinal: Gastrointestinal: Denies abdominal pain, Denies diarrhea, Denies nausea and Denies vomiting Musculoskeletal: Musculoskeletal: Denies back pain, Denies myalgias and Denies arthralgias Integumentary/Breasts: Skin/Breast: Denies pruritus and Denies rash Neurologic: Denies headache(s), Denies loss of vision and Denies weakness Psychiatric: Psychiatric: Reports no additional psychiatric complaints Endocrine: Endocrine: Denies fatigue Allergic/Immunologic: Allergic/Immunologic: Denies itchy eyes PMFSH Past Medical History Medical History Right foot pain Patient denies medical problems Family History Family History Grandparent Diabetes mellitus Carcinoma of colon, Onset Age: 90 Other No family history of cardiovascular disease No family history of hypertension Social History Social History Smoking status: Never smoker Alcohol intake: current Alcohol use details: occasionally Substance use: never Substance use type: does not use Do You Feel Safe in your Home?: Yes Lack of Transportation: No Lack of Food: Never True Current Housing: I Have Housing Concerned About Future Housing: No Difficulty Paying Gas/Electric Bills: No Difficulty Paying for Meds: No Currently Unemployed: No Difficulty w/ Childcare or Family Care: No Gender identity (if verbalized by the patient): Female Comments At time of signature, agree with nursing past medical, surgical, social and family history. There is no relevant family history pertinent to the presenting complaint. Exam Const: General: cooperative, healthy appearing, comfortable, no acute distress and well nourished Nutritional Appearance: well nourished Orientation/consciousness: patient oriented x3 Limitations: no limitations HENMT: Head: normal to inspection, normocephalic and atraumatic Ears: hearing grossly normal bilaterally, external ears normal, TM normal on the left, EAC's normal, no periauricular adenopathy and TM abnormal bulging on the right and erythematous on the right Face/Nose/Sinus: Normal external nose present, Abnormal mucous membranes and turbinates present erythematous bilateral and diffuse, normal facial exam, sinuses nontender and face symmetric Face and sinus: normal facial exam, sinuses nontender and face symmetric Mouth: Yes Normal oral and palatal mucosa present, Yes lip normal, Yes tongue normal, Yes Normal salivary glands and ducts present, Yes oropharynx normal and Yes moist mucous membranes Teeth and gingiva: dentition normal Throat: posterior oropharynx normal, tonsils normal and uvula midline Eyes: General: appearance normal, both eyes and all related structures Alignment and Position: alignment normal and position normal Periorbital: periorbital findings normal Eyelids: eyelids normal Pupils: Equal, round and reactive pupils present Neck: Neck: normal visual inspection, full ROM, no lymphadenopathy and supple Chest: Chest palpation & inspection: normal inspection of the chest and normal palpation of entire chest wall Resp: Effort & Inspection: normal respiratory effort and able to speak in complete sentences Auscultation: clear to auscultation bilaterally, no c rackles, no rales, no rhonchi and no wheezes Cardio: Rate: regular rate Rhythm: regular rhythm Heart sounds: S1 normal heart sound present and S2 normal heart sound present GI: Inspection: normal to inspection Skin: General skin exam: normal color and no rashes or lesions noted Neuro: General: patient oriented x3 and moves all extremities Cranial nerves: Yes Equal, round and reactive pupils present Speech: normal speech Gait exam (Neuro): Normal gait present Extrem: General: normal to inspection, full ROM and no edema Psych: Appearance: grossly normal and well kempt Mental Status: mental status grossly normal Speech and movement: Normal speech and movement present Affect: normal affect Attitude: cooperative Thought process: Normal thought process present Course Course Emergency Course: Discharge instructions reviewed with patient, as well as provided in writing per nursing staff. The instructions also include specific and strict return/GO TO THE ER as well as f/u information. All questions have been answered, and the patient deny any further questions with discharge and discharge plan. Portions of this record may have been created with voice recognition software Level of Care: Express Care Visit Vital Signs Vital signs: Reviewed MDM - URI/Sore Throat MDM Narrative Medical decision making narrative: Pt well hydrated appearing, in no respiratory distress, hemodynamically stable. Recommend supportive care. The patient is stable at time of discharge the clinical impression was discussed and the patient was given the opportunity to ask questions, which were addressed as completely as possible given the information available at present. Anticipatory guidance and return to care precautions were discussed and the importance of primary care follow-up was stressed and encouraged. The patient voiced understanding of the plan, indications to return, and the need for follow-up. Differential diagnosis considered: Mera virus, strep pharyngitis, allergic rhinitis, upper respiratory tract infection, sinusitis, rhinosinusitis, nasopharyngitis. viral pharyngitis, otitis media, otitis externa, otitis effusion, foreign body, cerumen impaction, viral syndrome, and influenza.? Exam findings show no acute concerns or changes; patient is non-toxic appearing and is in no distress.? Patient is appropriate for outpatient treatment and follow- up.? Medical Records Attestation: I reviewed the patient's medical records. Discharge Plan Discharge Clinical Impression: Otitis media Qualifiers: Otitis media type: suppurative Chronicity: acute Laterality: right Recurrence: non-recurrent Spontaneous tympanic membrane rupture: without spontaneous rupture Qualified Code(s): H66.001 - Acute suppurative otitis media without spontaneous rupture of ear drum, right ear Patient Disposition: Home, Self-Care Condition: Stable Instructions: Ear Infection (GEN) Additional Instructions: Take antibiotics as directed. Recommend antihistamine such as Benadryl at night time and Zyrtec or Milvia during the day until symptoms improve Flonase nasal spray, 1 spray in each nostril once daily until symptoms improve Also, recommend symptomatic treatment includes: rest, fluids, and increase humidity of the air at home. Recommend Acetaminophen as directed on the bottle to reduce fever, pain Please schedule a follow-up visit with your personal physician for further evaluation and treatment within 3-5days. If your symptoms persist, change or worsen significantly before you can contact your personal physician then please, without delay, go to the emergency department for further evaluation. Patient Language: Sudanese Prescriptions: New amoxicillin 875 mg tablet 875 mg PO Q12H 7 Days Qty: 14 0RF No Action losartan-hydrochlorothiazide 50-12.5 mg tablet 1 tablet PO DAILY Qty: 90 1RF Follow-up/Referrals: Trisha Bond MD [Primary Care Provider] - 3 Days Time of Disposition: 16:57
[2024-04-06 16:42] VITALS: BP 153/93; PULSE 82; RESP 16; TEMP 36.8; O2SAT 99
== END 2024-04-06 16:59 | disposition home or self-care (01) ==
PROVIDERS: Emergency Provider Nurse Practitioner Family; PCP Family Medicine
DX: H66.001 Acute suppurative otitis media without spontaneous rupture of ear drum, right ear (principal); I10 Essential (primary) hypertension
CPT/HCPCS: 99213; G0463

== ENCOUNTER 2024-08-27 07:51 | Day surgery (SDC) | payer OTHER, SELFPAY ==
[2024-03-30 08:37] VITALS: BMI 28.2
[2024-08-13 10:48] VITALS: BMI 27.0
[2024-08-27 08:18] VITALS: BMI 27.3
[2024-08-27 08:28] VITALS: BP 143/100; PULSE 68; RESP 16; TEMP 36.5; O2SAT 100
--- NOTE | 2024-08-27 08:55 | WPDANESEPP ---
Anes - Eval Pre Procedure Procedure: Operation Date: 08/27/24 09:30 Proposed Procedures p Screening Colonoscopy - Neptali Cleary DO Date/Time: 08/27/24 08:55 Pre Op Diagnosis: Neoplasm Screening Patient Data Age: 49 Gender: F Height: 1.63 m Weight: 72.25 kg Last Vital Signs Temp 97.7 F 08/27/24 08:28 Pulse 68 08/27/24 08:28 Resp 16 08/27/24 08:28 BP 143/100 H 08/27/24 08:28 Pulse Ox 100 08/27/24 08:28 O2 Del Method Room Air 08/27/24 08:28 Allergies Allergy/AdvReac Type Severity Reaction Status Date / Time No Known Allergies Allergy Unknown Verified 08/13/24 10:45 Home Medications ?Medication ?Instructions ?Recorded ?Confirmed ?Type cetirizine 10 mg capsule (Allergy 10 mg PO DAILY PRN allergy symptoms 08/13/24 08/27/24 History Relief (cetirizine)) losartan 50 mg-hydrochlorothiazide 1 tablet feeding tube DAILY 08/13/24 08/27/24 History 12.5 mg tablet Patient hx anesthesia problems: none Family hx anesthesia problems: none Results Review: All pre-operative results and documents have been reviewed as part of the pre-operative evaluation. [facility]LY [facility] Past Medical History Medical History Right foot pain Patient denies medical problems Family History Family History Grandparent Diabetes mellitus Carcinoma of colon, Onset Age: 90 Other No family history of cardiovascular disease No family history of hypertension Social History Social History Smoking status: Never smoker Alcohol intake: current Alcohol use details: casual use Substance use: never Substance use type: does not use Do You Feel Safe in your Home?: Yes Lack of Transportation: No Lack of Food: Never True Current Housing: I Have Housing Concerned About Future Housing: No Difficulty Paying Gas/Electric Bills: No Difficulty Paying for Meds: No Currently Unemployed: No Difficulty w/ Childcare or Family Care: No Living arrangements: with family Gender identity (if verbalized by the patient): Female Spiritual care concerns: No Comments ASA2 Exam Day of Procedure 08/27/24 08:55 Heart: regular rate and rhythm Lungs: clear to auscultation Airway: Mallampati scale class 1 and special considerations Neurological: alert and oriented
--- NOTE | 2024-08-27 08:59 | PM.IMHP ---
H&P: HPI History of Present Illness Date/Time: 08/27/24 08:59 Chief Complaint: Screening for colon cancer Narrative: 49 yo woman presents for colonoscopy. She has never had one before. Denies 1st degree family hx colon cancer. Denies hematochezia or melena. Review of Systems Review of Systems: All systems reviewed & are unremarkable except as noted in HPI and below Constitutional: Constitutional: Denies chills, Denies fever(s), Denies headache(s) and Denies weight loss Eyes: Eyes: Denies change in vision ENT: Denies dizziness, Denies headache(s), Denies neck mass and Denies throat swelling Cardiovascular: Cardiovascular: Denies chest pain, Denies lightheadedness and Denies dyspnea Respiratory: Respiratory: Denies cough, Denies dyspnea and Denies wheezing Gastrointestinal: Gastrointestinal: Denies abdominal pain, Denies change in bowel habits, Denies nausea and Denies vomiting Genitourinary: Genitourinary: Denies hematuria and Denies dysuria Musculoskeletal: Musculoskeletal: Reports as per HPI Integumentary/Breasts: Skin/Breast: Reports as per HPI Neurologic: Denies dizziness and Denies headache(s) Allergic/Immunologic: Allergic/Immunologic: Denies throat swelling and Denies wheezing PMF Past Medical History Medical History Right foot pain Patient denies medical problems Family History Family History Grandparent Diabetes mellitus Carcinoma of colon, Onset Age: 90 Other No family history of cardiovascular disease No family history of hypertension Social History Social History Smoking status: Never smoker Alcohol intake: current Alcohol use details: casual use Substance use: never Substance use type: does not use Do You Feel Safe in your Home?: Yes Lack of Transportation: No Lack of Food: Never True Current Housing: I Have Housing Concerned About Future Housing: No Difficulty Paying Gas/Electric Bills: No Difficulty Paying for Meds: No Currently Unemployed: No Difficulty w/ Childcare or Family Care: No Living arrangements: with family Gender identity (if verbalized by the patient): Female Spiritual care concerns: No Meds Home Medications and Allergies Home Medications ?Medication ?Instructions ?Recorded ?Confirmed ?Type cetirizine 10 mg capsule (Allergy 10 mg PO DAILY PRN allergy symptoms 08/13/24 08/27/24 History Relief (cetirizine)) losartan 50 mg-hydrochlorothiazide 1 tablet feeding tube DAILY 08/13/24 08/27/24 History 12.5 mg tablet Allergies Allergy/AdvReac Type Severity Reaction Status Date / Time No Known Allergies Allergy Unknown Verified 08/13/24 10:45 Vital Signs Vital Signs - 24 hr 08/27/24 08:28 Temperature 97.7 F Pulse Rate 68 Respiratory Rate 16 Blood Pressure 143/100 H Pulse Oximetry 100 Oxygen Delivery Room Air Exam Const: General: no acute distress and alert Orientation/consciousness: patient oriented x3 HENMT: Head: normocephalic and atraumatic Ears: hearing grossly normal bilaterally Face/Nose/Sinus: Normal nares present Mouth: Yes Normal oral and palatal mucosa present Eyes: Periorbital: periorbital findings normal Sclera: sclerae normal EOM: EOMs intact bilaterally Neck: Neck: normal visual inspection, no lymphadenopathy and trachea midline Chest: Chest palpation & inspection: normal inspection of the chest Resp: Effort & Inspection: normal respiratory effort Auscultation: clear to auscultation bilaterally Cardio: Jugular venous distension: no JVD Rate: regular rate Rhythm: regular rhythm Heart sounds: S1 normal heart sound present and S2 normal heart sound present Peripheral pulses: Peripheral pulses 2+ throughout GI: Inspection: normal to inspection GI Palp: Yes Soft to palpation, No Tenderness to palpation present (GI), No Guarding due to palpation present (GI) and No Rebound tenderness present Percussion: Yes normal to percussion Auscultation: normal bowel sounds : General: Yes no CVA tenderness Back/Spine/Pelvis: Back: no CVA tenderness Neuro: General: patient oriented x3, no focal motor deficits and CN's II-XI intact bilaterally Cognition (Neuro): normal cognition Speech: normal speech Motor exam (neuro): 5/5 motor strength present throughout Extrem: General: capillary refill normal and no clubbing, cyanosis or edema Assessment and Plan Assessment and plan (1) Screening for colon cancer: Code(s): Z12.11 - Encounter for screening for malignant neoplasm of colon Status: Acute Assessment and Plan: I have recommended colonoscopy. I have discussed the procedure, risks, benefits, and alternatives. Questions were answered. Patient is agreeable to proceed.
[2024-08-27] MEDS: LACTATED RINGERS 1,000 ML 150 ML IV CONT (09:04)
[2024-08-27 10:06] VITALS: BP 107/60; PULSE 66; RESP 15; O2SAT 100
--- NOTE | 2024-08-27 10:08 | WPDANESPN ---
Anes - Prog Note Post-Op Date/Time: 08/27/24 10:08 Vital Signs: Last Vital Signs Temp 97.7 F 08/27/24 08:28 Pulse 68 08/27/24 08:28 Resp 16 08/27/24 08:28 BP 143/100 H 08/27/24 08:28 Pulse Ox 100 08/27/24 08:28 O2 Del Method Room Air 08/27/24 08:28 Pain Score (VAS): no I/O: Intake & Output 08/26/24 08/27/24 08/27/24 23:59 07:59 15:59 Intake Total 200 Balance 200 Patient Feedback: Patient satisfied with anesthetic care.
[2024-08-27 10:16] VITALS: BP 110/61; PULSE 60; RESP 16; O2SAT 100
[2024-08-27 10:26] VITALS: BP 123/75; PULSE 65; RESP 16; O2SAT 100
== END 2024-08-27 10:37 | disposition home or self-care (01) ==
PROVIDERS: PCP Family Medicine; Visit Provider Surgery
PROC: 0DJD8ZZ Inspection of Lower Intestinal Tract, Via Natural or Artificial Opening Endoscopic (ICD-10-PCS; CPT 45378; principal; 2024-08-27 09:30)
DX: Z12.11 Encounter for screening for malignant neoplasm of colon (principal)
CPT/HCPCS: 45378

== ENCOUNTER 2024-09-21 08:30 | Outpatient (CLI) | payer OTHER, SELFPAY ==
--- NOTE | ~2024-09-21 | MM_ITS ---
EXAMINATION: MM screening sofia BI w bill HISTORY: Screening TECHNIQUE: Craniocaudal and mediolateral oblique 3-D tomosynthesis images were obtained and synthetic 2-D images were generated. CAD analysis was submitted and interpreted. COMPARISON: Comparison to multiple prior studies sequentially, with oldest reviewed study dated 09/19. BREAST PARENCHYMAL COMPOSITION: Not dense: There are scattered areas of fibroglandular density. FINDINGS: Stable benign cyst in the subareolar location of the left breast. There is no evidence of s uspicious mass, calcification, or architectural distortion to suggest malignancy in either breast. Th ere has been no suspicious interval change. IMPRESSION: 1. No mammographic evidence of malignancy. 2. Recommend routine screening mammography in one year. BI-RADS Category 1: Negative Reviewed, dictated and finalized at location B.
--- OUTSIDE RECORDS SUMMARY | 2024-09-21 08:32 | XMS_ITS | Clinical Summary ---
Author Organization [facility] eEvent Address [address] [place] [address] Care Team Providers Care Risk Control Analyst Name Role Phone Trisha Bond MD Primary Care Provider [phone] Source Comments [facility]Event,non-owned Affiliates and Associated Physician Practices is amultiple site organization consisting of ambulatory clinics and hospital sitesin [place], [place], [place] and [place]. This disclosure is being madepursuant to the Care Everywhere program and may not contain all information available regarding this patient. Last updated 17.[facility]Event Allergies No known active allergies Medications * Be aware that medications may not be up to date on this document. Alwaysverify current medications with the patient. losartan - hydroCHLOROthiazide (Hyzaar) 50-12.5 MG tablet Take 1 (one) tablet by mouth once daily 04/06/19 25 Active ibuprofen (Motrin) 200 MG tablet Take 1 (one) tablet by mouth every 6 hours as needed Active cetirizine (ZyrTEC ALLERGY) 10 MG tablet Take 1 (one) tablet by mouth once daily Active hydroCHLOROthiazide (Hydrodiuril) 12.5 MG TABS 03/21/19 24 Active meloxicam (Mobic) 15 MG tablet Take 1 (one) tablet by mouth once daily 30 tablet 5 04/23/19 25 Active Active Problems Problem Noted Date Diagnosed Date Post-traumatic osteoarthritis of left knee 04/25 Social History Tobacco Use Types Packs/Day Years Used Date Smoking Tobacco: Never Smokeless Tobacco: Never Tobacco Cessation:Counseling Given: Not Answered PHQ-2 Answer Date Recorded Patient Health Questionnaire-2 Score 0 04/22/2024 Comments Unknown Sex and Gender Information Value Date Recorded Sex Assigned at Not on file Legal Sex Female 1:25 PM BREAD DISTRIBUTOR Gender Identity Not on file Sexual Orientation Not on file Last Filed Vital Signs Vital Sign Reading Time Taken Comments Blood Pressure - - Pulse - - Temperature - - Respiratory Rate - - Oxygen Saturation - - Inhaled Oxygen Concentration - - Weight 71.2 kg (157 lb) 04/23/2024 2:32 PM BREAD DISTRIBUTOR Height 160 cm (5' 3) 04/23/2024 2:32 PM BREAD DISTRIBUTOR Body Mass Index 27.81 04/23/2024 2:32 PM BREAD DISTRIBUTOR Plan of Treatment Health Maintenance Due Date Last Done Comments COLOGUARD (AGES 45-75) - COL ON CA SCREENING 1973 COLON MONITORING 1973 COLONOSCOPY - COLON CA SCREENING 1973 CT COLONOGRAPHY - COLON CA SCREENING 1973 Colorectal Cancer Screening 1973 FIT - COLON CA SCREENING 1973 FLEX SIG - COLON CA SCREENING 1973 LIPID TESTING 1973 MAMMOGRAM 1973 HIV SCREENING 02/05/1988 HEPATITIS C SCREENING 01/31/1991 DTAP/TDAP/TD VACCINES (1 - Tdap) 02/05/1992 HEPATITIS B VACCINE (1 of 3 - 19+ 3-dose series) 02/05/1992 PAP SMEAR 1994 PNEUMOCOCCAL VACCINE 50+ (1 of 1 - PCV) 2023 ZOSTER VACCINE (1 of 2) 2023 COVID-19 VACCINE (1 - 2023-2 5 season) 2023 SCREENING FOR DIABETES 04/23/2024 INFLUENZA VACCINE (#1) 2024 DEPRESSION SCREENING Completed 04/23/2024 HIB VACCINE Aged Out No longer eligi ble based on patient's age to complete this topic HPV VACCINE Aged Out No longer eligi ble based on patient's age to complete this topic MENINGOCOCCAL (Group B) VACC INE SHARED DECISION-MAKING Aged Out No longer eligibl e based on patient's age to complete this topic MENINGOCOCCAL GROUPS A/C/Y/W VACCINE Aged Out No longer eligible b ased on patient's age to complete this topic Insurance [facility] Care Teams Risk Control Analyst Relationship Specialty Start Date End Date Trisha Bond MD [address] [place] [address] PCP - General Family Medicine 04/23/24
--- OUTSIDE RECORDS SUMMARY | 2024-09-21 08:33 | XMS_ITS | Clinical Summary ---
Author Organization [facility] Address [address] [place] [address] Care Team Providers Care Glass Forming Engineer Name Role Phone Ene Flannery MD Primary Care Provider [phone] Medications No known medications Active Problems Problem [...] drink = 0.6 oz pur e alcohol) Comments Unknown Sex and Gender Information Value Date Recorded Sex Assigned at Not on file Legal Sex Female 9:34 AM OIL WELL ENGINEER Gender Identity Not on file Sexual Orientation Not on file Last Filed Vital Signs Vital Sign Reading Time Taken Comments Blood Pressure 120/80 04/21/2020 9:22 AM OIL WELL ENGINEER Pulse - - Temperature - - Respiratory Rate - - Oxygen Saturation - - Inhaled Oxygen Concentration - - Weight 74.8 kg (165 lb) 04/21/2020 9:22 AM OIL WELL ENGINEER Height 162.6 cm (5' 4) 04/21/2020 9:22 AM OIL WELL ENGINEER Body Mass Index 28.32 04/21/2020 9:22 AM OIL WELL ENGINEER Plan of Treatment Health Maintenance Due Date Last Done Comments DTAP/TDAP/TD VACCINES (1 - Tdap) 02/05/1992 HEPATITIS B VACCINES (1 of 3 - 19+ 3-dose series) 02/05/1992 HPV/Cotest (21-29) 1994 CERVICAL CANCER SCREENING 2003 HPV/Cotest (30-65) 2003 PAP SMEAR 2003 BREAST CANCER SCREENING 2013 COLORECTAL SCREENING 2018 Colorectal Cancer Screening 2018 FIT-DNA Q 3 years 2018 FIT/FOBT Q 1 year 2018 Flex Sig/CT Colonography Q 5 years 2018 ZOSTER VACCINE (1 of 2) 2023 INFLUENZA VACCINE (#1) 2024 01/08/2020, 2019 Insurance Care Teams Glass Forming Engineer Relationship Specialty Start Date End Date Ene Flannery MD PCP - General Family Practice 04/01/20
--- OUTSIDE RECORDS SUMMARY | 2024-09-21 08:33 | XMS_ITS | Clinical Summary ---
Author Organization [facility] [place] [facility] Address [address] [place] [address] Care Team Providers Care Pole Climber Name Role Phone Chalo Toth MD Primary Care Provider [phone] Allergies No known active allergies Medications ibuprofen [...] on file Legal Sex Female 6:48 PM ICE CRUSHER Gender Identity Not on file Sexual Orientation [...] 11:18 AM CDT Height 162.6 cm (5' 4) 12/03/2016 11:18 AM CDT Body Mass Index 25.4 12/03/2016 11:18 AM CDT Plan of Treatment Health Maintenance Due Date Last Done Comments Breast Cancer Screening-Mammogram 1973 Cervical Cancer Screening 1973 Colon Cancer Screening-Colonoscopy 1973 Depression Screening 1973 Hepatitis B Screening 1991 Regular Well Visit/Exam 18-64 1991 Zoster Vaccine (1 of 2) 2023 Covid-19 Vaccine (2023-2 5 season) 2023 06/22/2020, 06/01/2020 Influenza Vaccine (Season Ended) 2024 01/08/2020, 12/17/2018 DTaP/Tdap/Td Vaccine (2 - Td or [...] - GENERAL BRENDA MCLEAN Final Result ENEDELIA PERALTA [facility] Department [place] [address] from Last 3 Months or Most Recently Relevant to Health Maintenance Insurance [facility] Address: [place] [address] CHOICE PLUS [facility] Address: [place] [address] [facility] Address: [place] [address] Care Teams Pole Climber Relationship Specialty Start Date End Date Chalo Toth MD [address] [place] [address] PCP - General Family Medicine 12/03/16
--- OUTSIDE RECORDS SUMMARY | 2024-09-21 08:33 | XMS_ITS | Referral Summary ---
Author Organization [facility] [place] [facility] Address [address] [place] [address] Care Team Providers Care Beet Worker Name Role Phone Chalo Toth MD Primary Care Provider [phone] Allergies No known active allergies Medications ibuprofen [...] on file Legal Sex Female 6:48 PM SHIPPING/RECEIVING MANAGER Gender Identity Not on file Sexual Orientation [...] Aida Pedraza MD LAB MICROBIOLOGY - GENERAL [facility]IGUADaniel[facility] Final Result ENEDELIA PERALTA [facility] Department [place] [address] from Last 3 Months or Most Recently Relevant to Health Maintenance Insurance [facility] Address: [address] [address] [place] [address] [facility] Address: [address] [place] [address] [facility] Address: [address] [address] [place] [address] Care Teams Beet Worker Relationship Specialty Start Date End Date Chalo Toth MD [address] [place] [address] PCP - General Family Medicine 12/03/16
--- OUTSIDE RECORDS SUMMARY | 2024-09-21 08:33 | XMS_ITS | Data Portability ---
Author Organization [facility] [place] Address [address] [place] [address] Care Team Providers Care Barrel Reamer Name Role Phone DMITRY JAVI Primary Care Provider Assessment Encounter Date Assessment [...] Name and Address Organization Details Recorded Time Screenin g for malignan t neoplasm of cervix Completed 201509/25/2020 Screening for malignant neoplasms of the cervix;Re corded Elsewhere : No Locati on: [facility] So urce: EHR Chron ic: N Practic e ID: [id number] Bill able Time: 01:30:00 PM Apryl morales [facility] 11:03:09 Body mass index 25-29 - overweig [id number] Completed 201509/25/2020 Body mass index (BMI) 26.0-26.9 , adult;Rec orded Elsewhere : No Locati on: [facility] So urce: EHR Chron ic: N Practic e ID: [id number] Bill able Time: 01:30:[address] [facility] 1 11:03:06 Screenin g for malignan t neoplasm of rectum Completed 201509/25/2020 Encounter for screening for malignant neoplasm of rectum;Re corded Elsewhere : No Locati on: [facility] So urce: EHR Chron ic: N Practic e ID: [id number] Bill able Time: 01:30:[address] [facility] 1 11:03:[address] Concept Completed 201809/25/2020 Encntr for general adult medical exam w/o abnormal findings; Recorded Elsewhere : No Locati on: [facility] So urce: EHR Chron ic: N Practic e ID: [id number] Bill able Time: 10:45:[address] [facility] 1 11:03:[address] Concept Completed 201809/25/2020 Encntr for strategic communications specialist exam (general) (routine) w/o abn findings; Recorded Elsewhere : No Locati on: [facility] So urce: EHR Chron ic: N Practic e ID: [id number] Bill able Time: 10:45:[address] [facility] 1 11:03:14 Elevated blood-pr essure reading without diagnosi s of hyperten shruthi [id number] Completed 201809/25/2020 Elevated blood-pre ssure reading without diagnosis of HTN;Recor ded Elsewhere : No Locati on: [facility] So urce: EHR Chron ic: N Practic e ID: [id number] Bill able Time: 10:45:[address] [facility] 1 11:03:08 Problem Notes None recorded. Procedures Surgical History Date Name Laterality Status Provider Name and Address Organization Details Recorded Time 03/07/18 91 reconstruction of anterior cruciate ligament of knee joint completed Apryl [facility] 09/25/2020 11:11:03 Imaging Results None recorded. Procedure Notes None recorded. Medical Equipment None Reported. Allergies No known drug allergies Medications Name Sig Start Date Stop Date Status Note LastModified by Organization Details LastModified Time Zyrtec 10 mg tablet take 1 tablet by oral route every day active Prescribed Elsewhere: Yes Locatio n: [facility] Ramo fy By: [email or web address] En counter DateTime: 05/15/2018 10:45:00 AM Not Available Not Available Not Available Vitals Date Recorded Systolic And Diastolic Provider Name and Address Organization Details Last Updated DateTime 09/25/2020 126/80 mm[Hg] Lynsey Wise, [facility]- [address], [place], [address], [facility] 09/25/2020 11:30:41 Date Recorded Body height Body mass index (BMI) Body weight Provider Name and Address Organization Details Last Updated DateTime 09/25/2020 160.02 cm 29.8 kg/m2 25604.52 g Apryl Alves [facility] 09/25/2020 11:02:52 Social History Question Answer Notes LastModified by Organizat ion Details LastModified Time Tobacco Smoking Status Never Smoker Apryl Alves [facility] 09/25/2020 11:10:45 Are You Blind Or Do You Have [...] Yes Information not available 09/25/2020 Do You Use Sunscreen Routinely? Yes Information not available 09/25/2020 Sex: Unknown Functional Status Question Answer Note LastModified by Organizat ion Details LastModified Time Do you use any illicit or recreational drugs? No Information not available 09/25/2020 What is your level of alcohol consumption? Occasional Information not available 09/25/2020 Are you able to walk? YESWOREST Information not available 09/25/2020 What is your exercise level? Occasional Information not available 09/25/2020 Mental Status Question Answer Note LastModified by Organization D etails LastModified Time Do you feel stressed (tense, restless, nervous, or anxious, or unable to sleep at night)? [id number] Information not available 09/25/2020 Family History Relationship Description Onset Age of [...] SNOMED-CT Code Diagnosis ICD10 Code Diagnosis Note [id number] Lynsey Wise , [facility] [address] [address] 09/25/2020 10:42:10 09/25/2020 11:36:06 Gynecologic examination [id number] Z01.419 Suggested Calcium with Vitamin D 1200-1500m g daily. Patient advised to get an annual flu shot in the fall and she could obtain at [facility] or [facility] clinic. Also to obtain TDap vaccinatio n [...] due 2023 unless otherwise indicated per asccpSTD [facility] ipal of schoolNo issues or concernsRe commended reading: The menopause manifestoC olonoscopy rec's reviewed-w ill discuss with PCPmammo ordered Health Concerns Section Related Observation LastModified by Organization Detai ls LastModified Time None Recorded Concern Status LastModified by Organization Details LastModified Time None Recorded Advance Directives Directive None Recorded Payers Insurance Date Sequence Insurance Name Policy Number Policy Schwartz Covered Member ID Schwartz Member ID Guarantor Name 09/25/2020 1 [facility] [id number] Morgan Lewis [id number] Marika Lewis Notes Date Note Type Note [...] schedule mammogram; Needs to schedule colonoscopy Lynsey Wise [facility]- [address], [place], [address], [facility] 09/25/2020 11:31:33 OBGyn Episode Ob Episode Information Episode Created Date Number of Fetuses Patient Bloodtype Patient rh Status Prepregnancy Weight lbs Domestic Partner Domestic Partner Phone Father Name Housekeeper/Custodian/Laundry Worker Status 09/26/19 21 1 CLOSED Fetus Data First Name Last Name Admitted to NICU Weight (g) Sex Living Outcome Pediatric Complications Fetus ID Race Codes Race Delivery Type 2976.47 0704 M Full Term [id number] Vaginal Delivery Alon Calculation Initial Alon Date [...] Domestic Partner Domestic Partner Phone Father Name Housekeeper/Custodian/Laundry Worker Status 09/26/19 21 1 CLOSED Fetus Data First Name Last Name Admitted to NICU Weight (g) Sex Living Outcome Pediatric Complications Fetus ID Race Codes Race Delivery Type 3089.86 8704 M Full Term [id number] Vaginal Delivery Alon Calculation Initial Alon Date [...]
== END 2024-09-21 08:31 | disposition home or self-care (01) ==
LOC: CHSIMG 08:30
PROVIDERS: PCP Family Medicine; Visit Provider Family Medicine
DX: Z12.31 Encounter for screening mammogram for malignant neoplasm of breast (principal)
CPT/HCPCS: 77063; 77067

== ENCOUNTER 2025-01-15 15:21 | Outpatient (CLI) | payer OTHER, SELFPAY ==
--- OUTSIDE RECORDS SUMMARY | 2025-01-15 15:26 | XMS_ITS | Clinical Summary ---
Author Organization [facility] Address [address] [place] [address] Care Team Providers Care Quill Cleaning Machine Operator Name Role Phone Ene Flannery MD Primary Care Provider [phone] Medications No known medications Active Problems Problem [...] on file Legal Sex Female 9:34 AM TRACK BROOM OPERATOR Gender Identity Not on file Sexual Orientation Not on file Last Filed Vital Signs Vital Sign Reading Time Taken Comments Blood Pressure 120/80 04/21/2020 9:22 AM TRACK BROOM OPERATOR Pulse - - Temperature - - Respiratory Rate - - Oxygen Saturation - - Inhaled Oxygen Concentration - - Weight 74.8 kg (165 lb) 04/21/2020 9:22 AM TRACK BROOM OPERATOR Height 162.6 cm (5' 4) 04/21/2020 9:22 AM TRACK BROOM OPERATOR Body Mass Index 28.32 04/21/2020 9:22 AM TRACK BROOM OPERATOR Plan of Treatment Health Maintenance Due Date [...] (#1) 2024 01/08/2020, 2019 Insurance Care Teams Quill Cleaning Machine Operator Relationship Specialty Start Date End Date Ene Flannery MD PCP - General Family Practice 04/01/20
--- OUTSIDE RECORDS SUMMARY | 2025-01-15 15:26 | XMS_ITS | Clinical Summary ---
Author Organization [facility] Address [address] [place] [address] Care Team Providers Care Application Support Manager Name Role Phone Trisha Bond MD Primary Care Provider [phone] Source Comments [facility],non-owned Affiliates and Associated Physician Practices is amultiple site organization consisting of ambulatory clinics and hospital sitesin [place] and [place]. This disclosure is being madepursuant to the Care Everywhere program and may not contain all information available regarding this patient. Last updated 17.[facility] Allergies No known active allergies Medications * [...] on file Legal Sex Female 1:25 PM DEBONE SUPERVISOR Gender Identity Not on file Sexual Orientation Not on file Last Filed Vital Signs Vital Sign Reading Time Taken Comments Blood Pressure - - Pulse - - Temperature - - Respiratory Rate - - Oxygen Saturation - - Inhaled Oxygen Concentration - - Weight 71.2 kg (157 lb) 04/23/2024 2:32 PM DEBONE SUPERVISOR Height 160 cm (5' 3) 04/23/2024 2:32 PM DEBONE SUPERVISOR Body Mass Index 27.81 04/23/2024 2:32 PM DEBONE SUPERVISOR Plan of Treatment Health Maintenance Due Date [...] 2023 ZOSTER VACCINE (1 of 2) 2023 SCREENING FOR DIABETES 04/23/2024 COVID-19 VACCINE (1 - 2023-2 5 season) 2024 INFLUENZA VACCINE (#1) 2024 DEPRESSION SCREENING Completed [...] patient's age to complete this topic Insurance [facility] Care Teams Application Support Manager Relationship Specialty Start Date End Date Trisha Bond MD [address] [place] [address] PCP - General Family Medicine 04/23/24
--- OUTSIDE RECORDS SUMMARY | 2025-01-15 15:26 | XMS_ITS | Clinical Summary ---
Author Organization [facility] Address [address] [place] [address] Care Team Providers Care Lead Security Officer Name Role Phone Chalo Toth MD Primary Care Provider [phone] Allergies No known active allergies Medications ibuprofen [...] on file Legal Sex Female 6:48 PM HAT FORMER Gender Identity Not on file Sexual Orientation [...] Screening 1993 Regular Well Visit/Exam 18-64 1991 Covid-19 Vaccine (3 - Pfizer risk series) 07/20/2020 06/22/2020, 06/01/2020 Zoster Vaccine (1 of 2) 2023 Influenza Vaccine (#1) 2024 0, 12/17/2018 DTaP/Tdap/Td Vaccine (2 - Td [...] BRENDA MCLEAN Final Result ENEDELIA PERALTA [facility] Department [place] [address] from Last 3 Months or Most Recently Relevant to Health Maintenance Insurance [facility] Address: [place] [address] [employer] [facility] H[employer]/PPO Address: [place] [address] [facility] [place] [address] Care Teams Lead Security Officer Relationship Specialty Start Date End Date Chalo Toth MD [address] [place] [address] PCP - General Family Medicine 12/03/16
[2025-01-15 18:59] LABS: Alanine Aminotransferase 29 U/L (6-35); Albumin Level 4.6 g/dL (3.5-5.1); Alkaline Phosphatase 82 U/L (38-126); Anion Gap 7 mmol/L (4-12); Aspartate Amino Transferase 42 U/L (14-36); Bilirubin,Total 0.4 mg/dL (0.2-1.3); Blood Urea Nitrogen 20 mg/dL (7-17); Calcium 9.2 mg/dL (8.4-10.2); Carbon Dioxide 30 mmol/L (22-30); Chloride 100 mmol/L (98-107); Estimated Glomerular Filt Rate > 60; Glucose 89 mg/dL (65-110); Potassium 3.8 mmol/L (3.4-5.0); Sodium 137 mmol/L (137-145); Total Protein 8.2 g/dL (6.3-8.2)
[2025-01-15 19:13] LABS: Hematocrit 43.7 % (37.0-47.0); Hemoglobin 14.5 g/dL (12.0-15.0); Mean Corpuscular HGB Conc 33.2 g/dl (32-36); Mean Corpuscular Hemoglobin 29.9 pg (26-34); Mean Corpuscular Volume 90.1 fl (80-100); Platelet Count Result 235 k/mm3 (150-375); Red Blood Count 4.85 M/mm3 (4.2-5.4); White Blood Count 5.6 K/mm3 (4.5-10.0)
[2025-01-15 20:57] LABS: HIV 1/2 Ab P24 Ag Result Negative (Negative)
[2025-01-16 08:09] LABS: Hep B Core Ab, Total Negative (Negative)
== END 2025-01-15 15:22 | disposition home or self-care (01) ==
LOC: ANHGOSHLAB 15:21
PROVIDERS: PCP Family Medicine; Visit Provider Physician Assistant
DX: L40.0 Psoriasis vulgaris (principal)
CPT/HCPCS: 36415; 80053; 85027; 86480; 86703; 86704; 86803; G0432